=== PATIENT | female | born 1970 | race Caucasian/White ===

== ENCOUNTER 2016-12-08 19:19 | Emergency (ER) | payer MEDICAID ==
[2016-12-08 20:36] LABS: BASOPHIL % 0.4 % (0-2); PLATELET COUNT 225 x10^3mcL (130-400); RED CELL DISTRIBUTION WIDTH 12.7 % (11.5-14.5)
[2016-12-08 20:48] LABS: CALCIUM 8.9 mg/dL (8.5-10.1); CARBON DIOXIDE 28.2 mmol/L (21-32); CHLORIDE SERUM 105 mmol/L (98-107); CREATININE SERUM 0.6 mg/dL (0.6-1.0); GFR1 > 60 mL/min; GLUCOSE SERUM 105 mg/dL (74-106); POTASSIUM SERUM 3.6 mmol/L (3.5-5.1); SODIUM SERUM 141 mmol/L (136-145)
[2016-12-08 21:06] LABS: ALBUMIN 3.9 g/dL (3.4-5.0); ALKALINE PHOSPHATASE 110 U/L (46-116); ALT/SGPT 37 U/L (14-59); AST/SGOT 23 U/L (15-37); BILIRUBIN TOTAL 0.32 mg/dL (0.20-1.00); MAGNESIUM 1.9 mg/dL (1.8-2.4); T4(THYROXINE) 7.5 ug/dL (4.7-13.3); TOTAL PROTEIN, SERUM 7.9 g/dL (6.4-8.2)
[2016-12-08 21:27] LABS: AMPHETAMINE QUAL UR NONE DETECTED (NEG <=1000)
[2016-12-08 23:40] VITALS: BP 106/64
== END 2016-12-08 23:40 | disposition home or self-care (01) ==
LOC: ED 19:19
PROVIDERS: Emergency Medicine
DX: R00.2 Palpitations (principal); I49.3 Ventricular premature depolarization
CPT/HCPCS: 83880; J2405; J7030

== ENCOUNTER 2016-12-14 19:13 | Emergency (ER) | payer MEDICAID ==
[2016-12-14 19:22] VITALS: BP 109/71
== END 2016-12-14 20:21 | disposition home or self-care (01) ==
LOC: ED 19:13
DX: N39.0 Urinary tract infection, site not specified (principal); I10 Essential (primary) hypertension; Z79.899 Other long term (current) drug therapy

== ENCOUNTER 2017-04-16 16:12 | Emergency (ER) | payer MEDICAID ==
[~2017-04-16] VITALS: Ht 157.5 cm; Wt 47.6 kg
[2017-04-16 17:48] LABS: BASOPHIL % 0.4 % (0-2); PLATELET COUNT 204 x10^3mcL (130-400); RED CELL DISTRIBUTION WIDTH 12.4 % (11.5-14.5)
[2017-04-16 17:57] LABS: CALCIUM 8.7 mg/dL (8.5-10.1); CHLORIDE SERUM 106 mmol/L (98-107); CREATININE SERUM 0.6 mg/dL (0.6-1.0); GFR1 > 60 mL/min; GLUCOSE SERUM 104 mg/dL (74-106); SODIUM SERUM 139 mmol/L (136-145)
[2017-04-16 18:11] LABS: FREE T4 0.87 ng/dL (0.76-1.46); FREE THYROXINE INDEX 2.5 ug/dL (1.4-4.5)
[2017-04-16 18:21] LABS: T3 TOTAL 0.88 ng/mL
[2017-04-16 19:06] VITALS: BP 139/82
== END 2017-04-16 19:06 | disposition home or self-care (01) ==
LOC: ED 16:12
PROVIDERS: Emergency Medicine Emergency Medical Services
DX: F41.9 Anxiety disorder, unspecified (principal); I10 Essential (primary) hypertension; Z88.2 Allergy status to sulfonamides; Z88.8 Allergy status to other drugs, medicaments and biological substances
CPT/HCPCS: 36415; 84439

== ENCOUNTER 2017-07-06 00:41 | Emergency (ER) | payer MEDICAID ==
[~2017-07-06] VITALS: Ht 152.4 cm; Wt 50.8 kg
[2017-07-06 00:50] VITALS: BP 127/95; Ht 152.4 cm; Wt 50.8 kg
== END 2017-07-06 04:36 | disposition left against medical advice (07) ==
LOC: ED 00:41
DX: Z53.21 Procedure and treatment not carried out due to patient leaving prior to being seen by health care provider (principal)

== ENCOUNTER 2018-01-27 14:20 | Emergency (ER) | payer MEDICAID ==
[~2018-01-27] VITALS: Ht 144.8 cm; Wt 43.5 kg
[2018-01-27 14:32] VITALS: Ht 144.8 cm; Wt 43.5 kg
[2018-01-27 16:00] VITALS: BP 115/82
== END 2018-01-27 16:29 | disposition home or self-care (01) ==
LOC: ED 14:20
DX: F43.20 Adjustment disorder, unspecified (principal); I10 Essential (primary) hypertension
CPT/HCPCS: Q0092

== ENCOUNTER 2018-02-12 23:34 | Emergency (ER) | payer MEDICAID ==
[~2018-02-12] VITALS: Ht 152.4 cm; Wt 43.5 kg
[2018-02-12 23:43] VITALS: Ht 152.4 cm; Wt 43.5 kg
[2018-02-13 00:17] LABS: CARBON DIOXIDE 25.5 mmol/L (21-32); CHLORIDE SERUM 104 mmol/L (98-107); CREATININE SERUM 0.6 mg/dL (0.6-1.0); GFR1 > 60 mL/min; GLUCOSE SERUM 123 mg/dL (74-106); POTASSIUM SERUM 3.5 mmol/L (3.5-5.1); SODIUM SERUM 141 mmol/L (136-145)
[2018-02-13 01:35] VITALS: BP 110/68
== END 2018-02-13 01:35 | disposition home or self-care (01) ==
LOC: ED 23:34
PROVIDERS: Emergency Medicine
DX: H81.10 Benign paroxysmal vertigo, unspecified ear (principal); F41.9 Anxiety disorder, unspecified; R11.2 Nausea with vomiting, unspecified; R11.0 Nausea; I10 Essential (primary) hypertension; Z88.2 Allergy status to sulfonamides; Z88.8 Allergy status to other drugs, medicaments and biological substances
CPT/HCPCS: J8597; Q0162

== ENCOUNTER 2019-02-24 23:15 | Emergency (ER) | payer MEDICAID ==
[~2019-02-24] VITALS: Ht 149.9 cm; Wt 50.8 kg
[2019-02-24 23:19] VITALS: Ht 149.9 cm; Wt 50.8 kg
[2019-02-25 00:25] LABS: BASOPHIL % 0.3 % (0-2); PLATELET COUNT 240 x10^3mcL (130-400); RED CELL DISTRIBUTION WIDTH 12.8 % (11.5-14.5)
[2019-02-25 00:41] LABS: CALCIUM 9.1 mg/dL (8.5-10.1); CARBON DIOXIDE 24.5 mmol/L (21-32); CHLORIDE SERUM 106 mmol/L (98-107); CREATININE SERUM 0.7 mg/dL (0.6-1.0); GFR1 > 60 mL/min; GLUCOSE SERUM 131 mg/dL (74-106); POTASSIUM SERUM 4.1 mmol/L (3.5-5.1); SODIUM SERUM 141 mmol/L (136-145)
[2019-02-25 00:52] LABS: T3 TOTAL 0.87 ng/mL
[2019-02-25 00:58] LABS: ALBUMIN 3.6 g/dL (3.4-5.0); ALKALINE PHOSPHATASE 109 U/L (46-116); ALT/SGPT 26 U/L (14-59); AST/SGOT 17 U/L (15-37); BILIRUBIN TOTAL 0.3 mg/dL (0.20-1.00); TOTAL PROTEIN, SERUM 7.7 g/dL (6.4-8.2)
[2019-02-25 02:39] LABS: FREE T4 0.91 ng/dL (0.76-1.46); FREE THYROXINE INDEX 1.8 ug/dL (1.4-4.5); T4(THYROXINE) 5.2 ug/dL (4.7-13.3)
[2019-02-25 03:03] VITALS: BP 115/67
== END 2019-02-25 03:03 | disposition home or self-care (01) ==
LOC: ED 23:15
PROVIDERS: Emergency Medicine
DX: R42 Dizziness and giddiness (principal); M79.10 Myalgia, unspecified site; I10 Essential (primary) hypertension; Z88.2 Allergy status to sulfonamides; Z98.890 Other specified postprocedural states
CPT/HCPCS: 36415; 84439; J8597; Q0162

== ENCOUNTER 2019-02-26 00:31 | Emergency (ER) | payer MEDICAID ==
[~2019-02-26] VITALS: Ht 149.9 cm; Wt 51.3 kg
[2019-02-26 00:52] VITALS: Ht 149.9 cm; Wt 51.3 kg
[2019-02-26 05:10] VITALS: BP 111/67
== END 2019-02-26 05:10 | disposition home or self-care (01) ==
LOC: ED 00:31
DX: M54.2 Cervicalgia (principal); R51 Headache; F41.9 Anxiety disorder, unspecified; I10 Essential (primary) hypertension; R07.89 Other chest pain; R11.10 Vomiting, unspecified; Z98.890 Other specified postprocedural states; Z88.1 Allergy status to other antibiotic agents; Z88.2 Allergy status to sulfonamides

== ENCOUNTER 2019-04-18 09:45 | Emergency (ER) | payer MEDICAID ==
[~2019-04-18] VITALS: Ht 149.9 cm; Wt 50.3 kg
[2019-04-18 09:49] VITALS: Ht 149.9 cm; Wt 50.3 kg
[2019-04-18 11:56] LABS: microscopic required? NO
[2019-04-18 12:12] LABS: UA SPECIFIC GRAVITY <=1.005 (1.005-1.035); urine erythrocyte NEGATIVE (NEGATIVE)
[2019-04-18 13:11] VITALS: BP 119/66
== END 2019-04-18 13:11 | disposition home or self-care (01) ==
LOC: ED 09:45
PROVIDERS: Emergency Medicine
DX: K59.00 Constipation, unspecified (principal); I10 Essential (primary) hypertension; Z98.890 Other specified postprocedural states; Z88.2 Allergy status to sulfonamides

== ENCOUNTER 2020-02-08 20:06 | Emergency (ER) | payer MEDICAID ==
[~2020-02-08] VITALS: Ht 149.9 cm; Wt 49.0 kg
[2020-02-08 20:14] VITALS: Ht 149.9 cm; Wt 49.0 kg
[2020-02-08 21:06] VITALS: BP 111/81
== END 2020-02-08 21:06 | disposition home or self-care (01) ==
LOC: ED 20:06
DX: F41.9 Anxiety disorder, unspecified (principal); I10 Essential (primary) hypertension; Z98.890 Other specified postprocedural states; Z88.1 Allergy status to other antibiotic agents; Z88.2 Allergy status to sulfonamides

== ENCOUNTER 2020-02-22 01:34 | Emergency (ER) | payer MEDICAID ==
[~2020-02-22] VITALS: Ht 149.9 cm; Wt 49.4 kg
[2020-02-22 01:43] VITALS: Ht 149.9 cm; Wt 49.4 kg
[2020-02-22 03:10] LABS: BASOPHIL % 0.3 % (0-2); PLATELET COUNT 206 x10^3mcL (130-400); RED CELL DISTRIBUTION WIDTH 12.7 % (11.5-14.5)
[2020-02-22 03:28] LABS: CALCIUM 8.8 mg/dL (8.5-10.1); CARBON DIOXIDE 31.9 mmol/L (21-32); CHLORIDE SERUM 105 mmol/L (98-107); CREATININE SERUM 0.8 mg/dL (0.6-1.0); GFR1 > 60 mL/min; GLUCOSE SERUM 113 mg/dL (74-106); POTASSIUM SERUM 3.7 mmol/L (3.5-5.1); SODIUM SERUM 140 mmol/L (136-145)
[2020-02-22 03:33] LABS: ALBUMIN 3.9 g/dL (3.4-5.0); ALKALINE PHOSPHATASE 98 U/L (46-116); ALT/SGPT 19 U/L (14-59); AST/SGOT 16 U/L (15-37); BILIRUBIN TOTAL 0.35 mg/dL (0.20-1.00); TOTAL PROTEIN, SERUM 7.8 g/dL (6.4-8.2)
[2020-02-22 03:44] LABS: FREE T4 0.91 ng/dL (0.76-1.46); FREE THYROXINE INDEX 2.4 ug/dL (1.4-4.5)
[2020-02-22 03:56] LABS: T3 TOTAL 1.14 ng/mL
[2020-02-22 05:19] VITALS: BP 106/68
== END 2020-02-22 04:25 | disposition home or self-care (01) ==
LOC: ED 01:34
PROVIDERS: Emergency Medicine
DX: F41.9 Anxiety disorder, unspecified (principal); R00.2 Palpitations; R06.02 Shortness of breath; R42 Dizziness and giddiness; R11.0 Nausea
CPT/HCPCS: 84439; Q0092

== ENCOUNTER 2020-05-22 13:42 | Emergency (ER) | payer MEDICAID ==
[~2020-05-22] VITALS: Ht 157.5 cm; Wt 49.4 kg
[2020-05-22 14:15] VITALS: BP 118/67; Ht 157.5 cm; Wt 49.4 kg
== END 2020-05-22 16:00 | disposition home or self-care (01) ==
LOC: ED 13:42
DX: F41.9 Anxiety disorder, unspecified (principal); I10 Essential (primary) hypertension; Z98.890 Other specified postprocedural states; Z88.2 Allergy status to sulfonamides; Z88.1 Allergy status to other antibiotic agents